=== PATIENT | male | born 1945 | race Caucasian/White ===

== ENCOUNTER 2017-09-02 01:04 | Emergency (ER) | payer MEDICARE ==
[~2017-09-02] VITALS: Ht 175.3 cm; Wt 77.1 kg
[~2017-09-02 01:04] MED LIST: BUSPIRONE HCL5 MG PO; CEFTIN500 MG PO; D3 + K2 DOTS 11 EACH PO; METOPROLOL SUCC25 MG PO; PROSTATE MED PO; ULTRAM50 MG PO
[2017-09-02] MEDS ORDERED: ACETAMINOPHEN 325 MG TAB ONE (01:07)
[2017-09-02] MEDS ORDERED: ACETAMINOPHEN 325 MG TAB PO ONE (01:15)
[2017-09-02] MEDS ORDERED: CLONIDINE HCL 0.1 MG TAB PO ONE (01:15)
--- NOTE | 2017-09-02 01:47 | Diagnostic Imaging Report ---
EXAMINATION: Head CT without contrast. HISTORY:Severe headache. COMPARISON:CT brain from 04/30/2016. TECHNIQUE: Multidetector axial images were obtained from the foramen magnum to the vertex without contrast. The images were reconstructed using brain and bone algorithms. Thin section brain images were reformatted into coronal and sagittal planes. Intravenous contrast: None IMAGE QUALITY: Acceptable. FINDINGS: Skull/scalp: No lytic or blastic. lesions. No surgical changes. Parenchyma: Nonspecific few, scattered supratentorial white matter patchy hypodensity are likely related to small vessel ischemic changes. No acute hemorrhage, mass or acute major vascular territorial infarct. Arteries: No density suggestive of thrombosis. Dural sinuses: No abnormal density suggestive of thrombosis. Ventricles: No hydrocephalus or displacement. Extra-axial spaces: No abnormal density. Brain volume: Normal for age. Craniocervical junction: No mass, Chiari malformation, or basilar invagination. Sella: No mass. Paranasal/mastoid sinuses: Imaged portions unremarkable. IMPRESSION: No acute intracranial abnormality. Mild supratentorial white matter microvascular ischemic changes. Signed by: Dr. Justina Lomax M.D. on 09/02/2017 1:44 AM
== END 2017-09-02 02:57 | disposition home or self-care (01) ==
LOC: ER 01:04
DX: G44.1 Vascular headache, not elsewhere classified (principal); I10 Essential (primary) hypertension; N40.0 Benign prostatic hyperplasia without lower urinary tract symptoms
CPT/HCPCS: 70450; 93005; 99282

== ENCOUNTER 2023-11-11 22:11 | Emergency (ER) | payer MEDICARE ==
[~2023-11-11] VITALS: Ht 175.3 cm; Wt 77.1 kg
[2023-11-11 22:24] VITALS: TEMP 98
[2023-11-11] MEDS: HYDRALAZINE HCL 10 MG TAB PO ONE (22:35)
[2023-11-11] MEDS ORDERED: HYDRALAZINE HCL 10 MG TAB ONE (22:38)
[2023-11-12 00:49] VITALS: BP 181/95
[2023-11-12] MEDS: HYDRALAZINE HCL 25 MG TAB PO ONE (00:49)
[2023-11-12 02:10] VITALS: PULSE 41; RESP 15; O2SAT 96
== END 2023-11-12 02:13 | disposition home or self-care (01) ==
LOC: ER 22:20
DX: R51.9 Headache, unspecified (principal); I10 Essential (primary) hypertension; K21.9 Gastro-esophageal reflux disease without esophagitis; R94.31 Abnormal electrocardiogram [ECG] [EKG]; Z85.51 Personal history of malignant neoplasm of bladder
CPT/HCPCS: 93005; 99283

== ENCOUNTER 2025-01-05 08:56 | Emergency (ER) | payer MEDICARE ==
[~2025-01-05] VITALS: Ht 165.1 cm; Wt 77.1 kg
[2025-01-05] MEDS: LIDOCAINE HCL 1% LOCAL INJ 20 ML VIAL INJ STA (09:54)
[2025-01-05 10:00] VITALS: PULSE 54; RESP 18; TEMP 98.7
[2025-01-05 10:05] VITALS: BP 150/89; PULSE 54; RESP 18; O2SAT 100
== END 2025-01-05 10:08 | disposition home or self-care (01) ==
LOC: ER 09:00
DX: L02.511 Cutaneous abscess of right hand (principal); I10 Essential (primary) hypertension; K21.9 Gastro-esophageal reflux disease without esophagitis; Z85.51 Personal history of malignant neoplasm of bladder
CPT/HCPCS: 99283